=== PATIENT | male | born 1960 | race Caucasian/White ===

== ENCOUNTER 2021-06-20 03:57 | Day surgery (SDC) | payer OTHER ==
[2021-06-16 17:29] VITALS: BMI 33.7
[2021-06-20] MEDS ORDERED: MIDAZOLAM HCL 2 MG/2 ML SINGLE DOSE VIAL ONE ×2 (15:48)
[2021-06-20] MEDS ORDERED: ceFAZolin SODIUM 1 GM VIAL IVPB ONE (15:49)
[2021-06-20 16:53] VITALS: BP 127/89; PULSE 75; TEMP 97.1
== END 2021-06-20 17:00 | disposition home or self-care (01) ==
LOC: JASU-SURG 03:57
PROVIDERS: ATTEND Urology
PROC: 0TF4XZZ Fragmentation in Left Kidney Pelvis, External Approach (ICD-10-PCS; principal; 2021-06-20 14:30)
DX: N20.0 Calculus of kidney (principal)